=== PATIENT | male | born 2000 | race Caucasian/White ===

== ENCOUNTER 2023-10-02 07:00 | Emergency (ER) | payer BC ==
[~2023-10-02] VITALS: Ht 172.7 cm; Wt 68.0 kg
[2023-10-02 07:08] VITALS: BP 125/54; PULSE 90; RESP 20; TEMP 97.1; O2SAT 98
[2023-10-02] MEDS ORDERED: LEVE500T9 PO (08:27)
[2023-10-02 08:31] VITALS: BP 93/50; PULSE 62; RESP 12; TEMP 97.1; O2SAT 100
== END 2023-10-02 08:31 | disposition home or self-care (01) ==
LOC: MED 07:00
DX: R56.9 Unspecified convulsions (principal); Z79.899 Other long term (current) drug therapy
CPT/HCPCS: 93005; 99283